=== PATIENT | male | born 1965 | race Caucasian/White ===

== ENCOUNTER 2023-12-03 10:43 | Emergency (ER) | payer MEDICAID, SELFPAY ==
[2023-12-03 11:02] VITALS: BP 119/80; PULSE 81; RESP 16; TEMP 36.4; O2SAT 97; BMI 31.6
--- NOTE | 2023-12-03 11:13 | ED.GENADULT ---
HPI - General Adult General Chief complaint: Headache/Migraine Stated complaint: Migraines, neck pain Time Seen by Provider: 12/03/23 11:06 Source: patient Mode of arrival: ambulatory Limitations: no limitations History of Present Illness HPI narrative: [age] year male presenting today with 2 days of a headache. Headache is located temporally bilaterally and also in the back of the head. Nothing seems to make it better or worse although he does feel a little bit better when he is lying down and in a dark space. Sometimes he feels a little bit lightheaded when he stands up from a sitting position. States that his appetite has been normal. He denies any fevers or chills. No vomiting. He denies any diarrhea or difficulty with urination. States that he had a very similar episode approximately 15 years ago that required IV medication in the ER. Currently takes sertraline and that medication has been unchanged. Has a history of depression and anxiety, denies any other medical issues. Related Data Home Medications Medication Instructions Recorded Confirmed sertraline 50 mg tablet 50 mg PO DAILY 12/03/23 12/03/23 Allergies Allergy/AdvReac Type Severity Reaction Status Date / Time No Known Drug Allergies Allergy Verified 12/03/23 11:05 Review of Systems Status of ROS: Reports: 10 or more systems reviewed and unremarkable except as noted in History and below Exam Narrative: Exam Narrative: Well-nourished well-developed patient in no acute distress. Alert and oriented. Answers questions appropriately. Mood and affect are appropriate. Thoughts are goal oriented and rational. No tangential or magical thinking noted. Patient speaks in full sentences without needing to catch his breath. HEENT: Normocephalic atraumatic. Pupils are equally round reactive to light. Extraocular muscles are intact. Conjunctivae are moist without any icterus noted. Moist mucous membranes. Posterior pharynx is normal. Neck is soft without any lymphadenopathy or thyromegaly. No masses are appreciated. Cardiovascular: Heart is regular rate and rhythm S1 and S2 are present without any murmurs. Lungs: Clear to auscultation bilaterally no wheezes rhonchi or rales are appreciated. Patient takes deep breaths without any discomfort. Abdomen: Soft and nontender nondistended with normal bowel sounds. Extremities: Bilateral lower extremities are without edema. Skin: Well perfused without any obvious rashes. Strength is 5/5 of the upper and lower extremities. Reflexes are 2+ and symmetric at the knees. Cranial nerves 3-12 are normal. There is no nystagmus either horizontally or vertically. Gait is normal. Const: Vital Signs, click to edit/add: Vital Signs - 24 hr 12/03/23 11:02 12/03/23 12:16 Temperature 97.5 F L Pulse Rate [Pulse Oximeter] 81 75 Respiratory Rate 16 16 Blood Pressure [Ri ght Upper Arm] 119/80 Pulse Oximetry 97 99 Oxygen Delivery Me thod Room Air Room Air Course Course ED Course: IV fluids, Toradol, Zofran and Benadryl were given patient did have relief of his symptoms. COVID was also check, this was negative. I did consider other diagnoses, however, without any focal neurologic deficits in no fevers or chills, I do not think that this is a infectious process nor a neurologic process such as stroke. Vital Signs Vital signs: Initial Vital Signs Temperature 97.5 F L 12/03/23 11:02 Temperature Source Temporal Artery Scan 12/03/23 11:02 Pulse Rate 81 12/03/23 11:02 Respiratory Rate 16 12/03/23 11:02 Blood Pressure 119/80 12/03/23 11:02 Blood Pressure Mean 93 12/03/23 11:02 Blood Pressure Position Sitting 12/03/23 11:02 Pulse Oximetry 97 12/03/23 11:02 Oxygen Delivery Method Room Air 12/03/23 11:02 Vital Signs Temperature 97.5 F L 12/03/23 11:02 Pulse Rate 81 12/03/23 11:02 Respiratory Rate 16 12/03/23 11:02 Blood Pressure 119/80 12/03/23 11:02 Pulse Oximetry 97 12/03/23 11:02 Oxygen Delivery Method Room Air 12/03/23 11:02 Temperature 97.5 F L 12/03/23 11:02 Pulse Rate 75 12/03/23 12:16 Respiratory Rate 16 12/03/23 12:16 Blood Pressure 119/80 12/03/23 11:02 Pulse Oximetry 99 12/03/23 12:16 Oxygen Delivery Method Room Air 12/03/23 12:16 Medications Administered Medications: Discontinued Medications Generic Name Dose Route Start Last Admin Trade Name Freq PRN Reason Stop Dose Admin Diphenhydramine HCl 25 mg 12/03/23 11:13 12/03/23 11:43 Diphenhydramine 50 Mg/Ml Inj IVP 12/03/23 11:14 25 mg ONCE ONE Administration Sodium Chloride 500 mls @ 500 mls/hr 12/03/23 11:13 12/03/23 11:36 0.9 % Sodium Chloride 500 Ml IV 12/03/23 12:12 500 mls/hr .Q1H ONE Administration Ketorolac Tromethamine 30 mg 12/03/23 11:13 12/03/23 11:43 Ketorolac 30 Mg/Ml Inj IVP 12/03/23 11:14 30 mg ONCE ONE Administration Ondansetron HCl 4 mg 12/03/23 11:13 12/03/23 11:43 Ondansetron 2 Mg/Ml Inj IVP 12/03/23 11:14 4 mg ONCE ONE Administration Medical Decision Making MDM Narrative Medical decision making narrative: 58-year-old male with migraine. Symptoms relieved the treatment per above. Follow-up as needed. Lab Data Lab results reviewed: Yes I reviewed the patient's lab results Labs: Lab Results 12/03/23 Range/Units 11:35 SARS-CoV-2 (PCR) Negative SARS-CoV-2 (Negative) Discharge Plan Discharge Clinical Impression: Migraine Patient Disposition: Home, Self-Care Condition: Improved Additional Instructions: Rest as much as possible over the next few days. Follow-up with primary care provider as needed. Return to the ER if symptoms worsen. Prescriptions: No Action sertraline 50 mg tablet 50 mg PO DAILY Follow Up/Referrals: Provider,Not a Local [Primary Care Provider] - Stand Alone Forms: [employer] Info Instructions
[2023-12-03] MEDS: 0.9 % SODIUM CHLORIDE 500 ML 500 ML IV (11:36)
[2023-12-03] MEDS: KETOROLAC 30 MG/ML inj IVP (11:43)
[2023-12-03] MEDS: diphenhydrAMINE 50 MG/ML inj 25 MG IVP (11:43)
[2023-12-03] MEDS: ONDANSETRON 2 MG/ML inj 4 MG IVP (11:43)
[2023-12-03 12:16] VITALS: PULSE 75; RESP 16; O2SAT 99
[2023-12-03 12:24] LABS: SARS PCR* Negative SARS-CoV-2 (Negative)
[2023-12-03 12:51] VITALS: PULSE 67; O2SAT 98
== END 2023-12-03 12:52 | disposition home or self-care (01) ==
PROVIDERS: Emergency Provider Family Medicine
DX: G43.909 Migraine, unspecified, not intractable, without status migrainosus (principal)
CPT/HCPCS: 87635; 96374; 96375; 99284; J1200; J1885; J2405; J7030